=== PATIENT | female | born 1975 | race Caucasian/White ===

== ENCOUNTER 2021-08-02 10:27 | Emergency (ER) | payer BC ==
[2021-08-02 10:36] VITALS: BMI 41.6
[2021-08-02] MEDS ORDERED: METOCLOPRAMIDE HCL INJECTION 10 MG/2 ML VIAL IVPUSH ONE (11:43)
[2021-08-02] MEDS ORDERED: ACETAMINOPHEN 1000 MG/100 ML BAG IVPB ONE (11:43)
[2021-08-02] MEDS ORDERED: METOCLOPRAMIDE HCL INJECTION 10 MG/2 ML VIAL ONE (11:49)
[2021-08-02] MEDS ORDERED: ACETAMINOPHEN INJECTION 100 ML IVPB ONE (11:49)
[2021-08-02 12:14] LABS: BASO % 0.3 % (0-2.0); EOS % 1.3 % (0-4.5); HEMATOCRIT 41.4 % (32.4-45.2); HEMOGLOBIN 13.5 GM/dL (10.7-15.3); LYMPH % 29.5 % (8-40); MCH 25.1 pg (25.7-33.7); MCHC 32.6 g/dl (32.0-36.0); MEAN PLT VOLUME 8.3 fl (7.5-11.1); MONO % 4.8 % (3.8-10.2); NEUT % 64.1 % (42.8-82.8); PLATELET COUNT 370 10^3/uL (134-434); RBC 5.38 M/mm3 (3.60-5.2); RDW 15.6 % (11.6-15.6)
[2021-08-02 12:19] LABS: EPI CELLS 13 /uL (0-25.1); HYALINE CASTS 2 /uL (0-3.1); PH,URINE 7.5 (5.0-8.0); URINE APPEARANCE CLEAR; URINE BACTERIA 522 /uL (0-1359); URINE BILIRUBIN NEGATIVE (NEGATIVE); URINE COLOR YELLOW; URINE GLUCOSE (UA) NEGATIVE (NEGATIVE); URINE KETONE TRACE (NEGATIVE); URINE LEUK ESTERASE NEGATIVE (NEGATIVE); URINE NITRITE NEGATIVE (NEGATIVE); URINE PROTEIN 3+ (NEGATIVE); URINE RBC 41 /uL (0-23.9); URINE UROBILINOGEN 0.2 mg/dL (0.2-1.0); URINE WBC 14 /uL (0-25.8)
[2021-08-02 12:38] LABS: BLOOD UREA NITROGEN 6.2 mg/dL (7-18); CALCIUM 9.3 mg/dL (8.5-10.1)
[2021-08-02 12:39] LABS: ALBUMIN 3.4 g/dl (3.4-5.0)
[2021-08-02 12:42] LABS: CREATININE 0.6 mg/dL (0.55-1.3)
[2021-08-02 12:43] LABS: BILIRUBIN,TOTAL 0.8 mg/dL (0.2-1); TOT PROT 7.3 g/dl (6.4-8.2)
[2021-08-02 12:52] VITALS: PULSE 86
[2021-08-02 13:30] VITALS: BP 158/101
[2021-08-02 13:38] VITALS: TEMP 98
== END 2021-08-02 13:36 | disposition home or self-care (01) ==
LOC: JER 10:27
PROC: 3E0333Z Introduction of Anti-inflammatory into Peripheral Vein, Percutaneous Approach (ICD-10-PCS; principal; 2021-08-02)
PROC: 3E033GC Introduction of Other Therapeutic Substance into Peripheral Vein, Percutaneous Approach (ICD-10-PCS; 2021-08-02)
DX: R00.2 Palpitations (principal)
CPT/HCPCS: 36415; 80053; 81003; 84484; 85025; 87086; 93005; 93010; 99284-25

== ENCOUNTER 2022-07-23 19:16 | Emergency (ER) | payer BC ==
[2022-07-23 19:43] VITALS: BP 132/71; PULSE 87; RESP 18; TEMP 98.1; BMI 39.8
[2022-07-23] MEDS ORDERED: ACETAMINOPHEN 500 MG TABLET (FP) PO ONE (21:01)
[2022-07-23] MEDS ORDERED: AMOX TR/POT CLAV 875MG/125MG TABLETS (FP) PO ONE ×2 (21:01)
[2022-07-23] MEDS ORDERED: DIPHTH,PERTUSS(ACELL),TET 0.5 ML DISP.SYRIN IM ONE ×2 (21:03)
[2022-07-23] MEDS ORDERED: ACETAMINOPHEN 500 MG TABLET (FP) ONE (21:03)
[2022-07-23] MEDS ORDERED: AMOX TR/POT CLAV 875MG/125MG TABLETS (FP) ONE (21:03)
== END 2022-07-23 21:11 | disposition home or self-care (01) ==
LOC: JERFT 19:16 → JER 19:16 → JERFT 21:11
DX: S61.011A Laceration without foreign body of right thumb without damage to nail, initial encounter (principal); W27.4XXA Contact with kitchen utensil, initial encounter
CPT/HCPCS: 90715; 99283-25